=== PATIENT | male | born 1950 | race Caucasian/White ===

== ENCOUNTER 2019-06-13 08:09 | Emergency (ER) | payer BC, MEDICARE ==
--- OUTSIDE RECORDS SUMMARY | 2019-06-13 08:17 | XMS REPORT | Continuity of Care Document ---
:1950 External Reference #:[id number] Author Name Lawrence Ireland MD (transmitted by agent of provider June London) Address [address] [place] [address] Care Team Providers Name Role Phone Fredi Mitchell MD - Rheumatology Care Team Information [employer] Officer Lawrence Ireland MD - Family Medicine Care Team Information Bomb [employer] Officer Problems Active Problems Provider Date Essential hypertension Stephanie Stewart MD Onset: 09/12/2016 Psoriasis with arthropathy Stephanie Stewart MD Onset: 09/12/2016 Social History Type Date Description Comments Sex Unknown Tobacco Use Start: Unknown End: Former Cigarette Smoker quit 20 years ago Unknown ETOH Use Currently consumes alcohol socially Tobacco Use Start: Unknown End: Patient is a former smoker Unknown Smoking Status Reviewed: 05/20/19 Patient is a former smoker Allergies, Adverse Reactions, Alerts Active Allergies Reaction Severity Comments Date Sulfa Drugs rash 02/11/2011 Lisinopril has dull headaches Mild 11/24/2015 Medications Active Medications SIG Qnty Indications Ordering Date Provider Rosuvastatin Calcium Take One Tablet 30tabs Stephanie Stewart, 02/19/2018 10mg Tablets By Mouth AT Bedtime Clobetasol Propionate apply spray to 125ml Stephanie Stewart, 09/12/2016 0.05% rash on elbow MD Liquid and legs daily prn Hydrochlorothiazide take one tablet 90tabs Lawrence Ireland, 12/25/2015 25mg Tablets by mouth every MD day Amlodipine Besylate take 1 tablet 90tabs Lawrence Ireland, 07/27/2015 10mg Tablets by mouth at MD night Omron 7 Series Blood check blood Pat, Stephanie, 07/25/2015 Pressure Monitor pressure twice MD Device a day and keep a log Omeprazole take 1 capsule Meenacaps Lawrence Ireland, 20mg Capsules DR by mouth three MD times per week Edna Mitchell, 40mg/0.4ML PNKT Fredi Mitchell, 10&20&30mg TBPK Fredi NUÑEZ Immunizations CPT Code Status Date Vaccine Lot # [id number] Given 01/14/2019 Influenza High Dose [id number] Given 05/20/2018 Pneumovax Injection [id number] 42658 Given 02/19/2018 Influenza High Dose [id number] 39789 Given 12/16/2016 Influenza Virus Vaccine Quadrivalent Iiv4 Split [id number] Preser Free Id Q2038 Given 11/10/2015 Influenza Vaccine (Fluzone) Age 3 And Older [id number] Q2038 Given 12/30/2014 Influenza Vaccine (Fluzone) Age 3 And Older [id number] 89940 Given 12/30/2014 Zoster Vaccine Live Injection [id number] 12697 Given 12/30/2014 Pneumococcal Conjugate Vaccine 13 Valent For [id number] Intramuscular Use Vital Signs Date Vital Result Comment 05/20/2019 3:25pm BP Systolic 140 mmHg BP Diastolic 82 mmHg Body Temperature 98.4 F Heart Rate 80 /min Respiratory Rate 18 /min Height 71 inches 5'11" Weight 248.00 lb BMI (Body Mass Index) 34.6 kg/m2 BSA (Body Surface Area) 2.31 m2 [place] body weight in kilograms 78 kg O2 % BldC Oximetry 98 % 01/14/2019 2:34pm BP Systolic Sitting Left Arm 130 mmHg BP Diastolic Sitting Left Arm 70 mmHg Body Temperature 97.8 F Heart Rate 107 /min Respiratory Rate 24 /min Height 71 inches 5'11" Weight 248.00 lb BMI (Body Mass Index) 34.6 kg/m2 BSA (Body Surface Area) 2.31 m2 [place] body weight in kilograms 78 kg O2 % BldC Oximetry 97 % Results Test Acquired Date Facility Test Result H/L Range Note Comprehensive 01/08/2019 [facility] Glucose 76 mg/dL Normal 74-106 1 Metabolic Panel [address] [place] [address] [phone] BUN 10 mg/dL Normal 7-18 Creatinine 0.8 mg/dL Normal 0.6-1.3 Glom Filtration Rate, Estimate >60 mL/min >60 If >60 mL/min >60 2 BUN/Creat 12.5 ratio Sodium 137 mmol/L Normal 136-145 Potassium 3.5 mmol/L Normal 3.5-5.1 Chloride 104 mmol/L Normal 98-107 Carbon Dioxide 24 mmol/L Normal 21-32 Anion Gap 9 mEq/L Normal 8-16 Calcium 8.6 mg/dL Normal 8.5-10.1 Total Protein 8.4 g/dL High 6.4-8.2 Albumin 3.8 g/dL Normal 3.4-5.0 Globulin 4.6 g/dL High 1.9-4.3 Alb/Glob 0.8 ratio Bilirubin,Total 0.5 mg/dL Normal 0.2-1.0 Sgot/Ast 42 U/L High 15-37 SGPT/Alt 39 U/L Normal 12-78 Alkaline Phosphatase 62 U/L Normal 45-117 LDL Cholesterol Profile 01/08/2019 [facility] Cholesterol 180 mg/dL <[address] [place] [address] [phone] Triglycerides 62 mg/dL <150 4 HDL Cholesterol 48 mg/dL >40 5 LDL-Cholesterol 120 mg/dL < 100 6 CBC W/Automated 01/08/2019 [facility] White Blood 5.9 K/uL Normal 3.4-10.[address] Count [place], [place] [id number] [phone] Red Blood Count 4.41 M/uL Normal 4.20-5.80 Hemoglobin 15.6 gm/dL Normal 12.8-17.0 Hematocrit 42.6 % Normal 38.0-48.0 Mean Cell Volume 96.6 fl High 80.0-96.0 Mean Corpuscular HGB 35.4 pg High 27.0-33.0 Mean Corpuscular HGB Conc 36.6 g/dL High 31.7-36.0 Platelet Count 234 K/uL Normal 155-360 Red Cell Distri Width SD 43.4 fl Normal 36-51 Red Cell Distri Width %CV 12.1 % Normal 11.6-15.8 Mean Platelet Volume 9.4 fl Normal 6.6-10.6 Neut% 49.1 % Normal 33.0-73.0 Lymph % 27.8 % Normal 20.0-42.0 [place] % 15.0 % High 0.0-10.0 Eo% 6.9 % High 0.0-6.6 Bas% 1.0 % Normal 0.0-1.1 Immature Grans 0.2 % Normal 0.0-5.0 NRBC % 0.0 /100WBC < 10/ 100 WBC Neut# 2.91 K/uL Normal 1.8-7.0 Lymph # 1.65 K/uL Normal 1.0-4.0 [place] # 0.89 K/uL High 0.0-0.8 Eos # 0.41 K/uL Normal 0.0-0.5 Baso # 0.06 K/uL Normal 0.0-0.1 Immature Grans Absolute 0.01 K/uL NRBC # 0.00 K/uL 1 L40.50 2 Note: Persistent reduction for 3 months or more in an eGFR <60 mL/min/1.73 m2 defines CKD. Patients with eGFR values >/=60 mL/min/1.73 m2 may also have CKD if evidence of persistent proteinuria is present. The original MDRD equation for estimated GFR is not valid for patients less than 18 years of age. Additional information may be found at www.kdoqi.org. 3 Reference Guidelines*: Desirable: ........... < 200 mg/dL Borderline High: ..... 200-239 mg/dL High: ................ >= 240 mg/dL * The National Cholesterol Education Program (NCEP) 4 Reference Guidelines*: Normal: ............. < 150 mg/dL Borderline High: .... 150-199 mg/dL High: ............... 200-499 mg/dL Very High: .......... > 500 mg/dL * Source: National Cholesterol Education Program (NCEP) 5 Reference Guidelines*: Low HDL: ..... < 40 mg/dL Normal: ..... 40-60 mg/dL Desirable: ... > 60 mg/dL *The National Cholesterol Education Program(NCEP) 6 Reference Guidelines*: Optimal:........... <100 mg/dL Near Optimal....... 100-129 mg/dL Borderline High.... 130-159 mg/dL High............... 160-189 mg/dL Very High.......... >=190 mg/dL * Source: National Cholesterol Education Program (NCEP) Procedures Date Code Description Status 04/28/2011 60262517 Colonoscopy Completed Medical Devices Description No Information Available Encounters Type Date Location Provider Dx Diagnosis Office Visit 01/14/2019 [facility] Lawrence Ireland I10 Essential ( primary) 2:30p Office hypertension E78.5 Hyperlipidemia, unspecified L40.50 Arthropathic psoriasis, unspecified Z23 Encounter for immunization Assessments Date Code Description Provider 01/14/2019 I10 Essential (primary) hypertension Lawrence Ireland MD 01/14/2019 E78.5 Hyperlipidemia, unspecified Lawrence Ireland MD 01/14/2019 L40.50 Arthropathic psoriasis, unspecified Lawrence Ireland MD 01/14/2019 Z23 Encounter for immunization Lawrence Ireland MD Plan of Treatment Future Appointment(s):07/15/2019 8:00 am - Lawrence Ireland MD at [facility] [id number]/14/2019 - Lawrence Ireland MDI10 Essential (primary) hypertensionComments:BP well controlled. Continue current medicationsFollow up: 6 onspwhV64.5 Hyperlipidemia, unspecifiedComments:Labs reviewed.10 year ASCVDrisk of 19.3% - moderate to high intensity statin recommended. Currently on Risuvastatin 10 mg. Continue.L40.50 Arthropathic psoriasis, unspecifiedComments:Follows with rheumatology.Z23 Encounter for immunizationComments:Flu vaccine given Functional Status Functional Condition Comment Date Status Glasses Active Independent with all ADL's Active Mental Status Description No Information Available Referrals Description No Information Available
--- OUTSIDE RECORDS SUMMARY | 2019-06-13 08:17 | XMS REPORT | Continuity of Care Document ---
:1950 External Reference #:[id number] Author Name Lawrence Ireland MD (transmitted by agent of provider Dasha Obando) Address [address] [place] [address] Care Team Providers Name Role Phone Fredi Mitchell MD - Rheumatology Care Team Information Stitcher Around [phone] Lawrence Ireland MD - Family Medicine Care Team Information Stitcher Around Problems Active Problems Provider Date Essential hypertension [...] Medications SIG Qnty Indications Ordering Date Provider Doxycycline Hyclate 2 tab by mouth 2caps S50.852A Lawrence Ireland, 2019 100mg once MD Capsules Rosuvastatin Calcium Take One Tablet 30tabs Stephanie Stewart, 02/19/2018 10mg Tablets By Mouth AT MD Bedtime Clobetasol Propionate apply spray to 125ml Stephanie Stewart, 09/12/2016 0.05% rash on elbow MD Liquid and legs daily prn Hydrochlorothiazide take one tablet 90tabs Lawrence Ireland, 12/25/2015 25mg Tablets by mouth every MD day Amlodipine Besylate take 1 tablet 90tabs Lawrence Ireland, 07/27/2015 10mg Tablets by mouth at MD night Omron 7 Series Blood check blood Stephanie Stewart, 07/25/2015 Pressure Monitor pressure twice MD Device a day and keep a log Omeprazole take 1 capsule 38caps Lawrence Ireland, 20mg Capsules DR by mouth three MD times per week Humdelisa Mitchell, 40mg/0.4ML PNKT Fredi Mitchell, 10&20&30mg TBPK Fredi NUÑEZ Immunizations CPT Code Status Date Vaccine Lot # 60561 Given 01/14/2019 Influenza High Dose [id number] 81514 Given 05/20/2018 Pneumovax Injection [id number] 29294 Given 02/19/2018 Influenza High Dose [id number] 33911 Given 12/16/2016 Influenza Virus Vaccine Quadrivalent Iiv4 Split [id number] Preser Free Id Q2038 Given 11/10/2015 Influenza Vaccine (Fluzone) Age 3 And Older [id number] Q2038 Given 12/30/2014 Influenza Vaccine (Fluzone) Age 3 And Older [id number] 39651 Given 12/30/2014 Zoster Vaccine Live Injection [id number] 50337 Given 12/30/2014 Pneumococcal Conjugate Vaccine 13 Valent For [id number] Intramuscular Use Vital Signs Date Vital Result Comment 05/20/2019 3:25pm BP Systolic 140 mmHg BP Diastolic 82 mmHg Body Temperature 98.4 F Heart Rate 80 /min Respiratory Rate 18 /min Height 71 inches 5'11" Weight 248.00 lb BMI (Body Mass Index) 34.6 kg/m2 BSA (Body Surface Area) 2.31 m2 [place] body weight in kilograms 78 kg O2 % BldC Oximetry 98 % 01/14/2019 2:34pm BP Systolic Sitting Left Arm 130 mmHg BP Diastolic Sitting Left Arm 70 mmHg Body Temperature 97.8 F Heart Rate 107 /min Respiratory Rate 24 /min Height 71 inches 5'11" Weight 248.00 lb BMI (Body Mass Index) 34.6 kg/m2 BSA (Body Surface Area) 2.31 m2 [place] body weight in kilograms 78 kg O2 % BldC Oximetry 97 % Results Test Acquired Date Facility Test Result H/L Range Note Comprehensive 01/08/2019 [facility] Glucose 76 mg/dL Normal 74-106 1 Metabolic Panel [address] [place] [address] [phone] BUN 10 mg/dL Normal 7-18 Creatinine 0.8 [...] U/L Normal 45-117 LDL Cholesterol Profile 01/08/2019 [facility] Cholesterol 180 mg/dL <200 3 [address] [place] [address] [phone] Triglycerides 62 mg/dL <150 4 HDL Cholesterol 48 mg/dL >40 5 LDL-Cholesterol 120 mg/dL < 100 6 CBC W/Automated 01/08/2019 [facility] White Blood 5.9 K/uL Normal 3.4-10.5 Diff [address] [place] [address] [phone] Red Blood Count 4.41 M/uL Normal 4.20-5.80 [...] 33.0-73.0 Lymph % 27.8 % Normal 20.0-42.0 [place] % 15.0 % High 0.0-10.0 Eo% 6.9 % High 0.0-6.6 Bas% 1.0 % Normal 0.0-1.1 Immature Grans 0.2 % Normal 0.0-5.0 NRBC % 0.0 /100WBC < 10/ 100 WBC Neut# 2.91 K/uL Normal 1.8-7.0 Lymph # 1.65 K/uL Normal 1.0-4.0 [place] # 0.89 K/uL High 0.0-0.8 Eos # [...] (NCEP) Procedures Date Code Description Status 04/28/2011 [id number] Colonoscopy Completed Medical Devices Description No Information Available Encounters Type Date Location Provider Dx Diagnosis Office Visit 05/20/2019 [facility] Lawrence Ireland, S50.852A Superficial foreign 3:30p Office MD body of left forearm, initial encounter Office Visit 01/14/2019 [facility] Lawrence Ireland, I10 Essential ( primary) 2:30p Office hypertension E78.5 Hyperlipidemia, unspecified L40.50 Arthropathic psoriasis, unspecified Z23 Encounter for immunization Assessments Date Code Description Provider 05/20/2019 S50.852A Superficial foreign body of left forearm, Lawrence Ireland MD initial encounter 01/14/2019 I10 Essential (primary) hypertension Lawrence Ireland MD 01/14/2019 E78.5 Hyperlipidemia, unspecified Lawrence Ireland MD 01/14/2019 L40.50 Arthropathic psoriasis, unspecified Lawrence Ireland MD 01/14/2019 Z23 Encounter for immunization Lawrence Ireland MD Plan of Treatment Future Appointment(s):07/15/2019 8:00 am - Lawrence Ireland MD at [facility] [id number]/20/2019 - Lawrence Ireland MDS50.852A Superficial foreign body of left forearm, initial encounterNew Medication:Doxycycline Hyclate 100 mg - 2 tab by mouth onceComments:Small black spot which appears to be a foreign body in the area where patient removed tick. I was able to remove this foreign body using pickups in clinic. The area was cleaned with an alcohol swab and then washed. Band-Aid was applied. Patient tolerated this well.Prophylactic dose of doxycycline as prescribed. Signs and symptoms prompting return to clinic for further evaluation are discussed. Functional Status Functional Condition Comment Date Status Glasses Active Independent with all ADL's Active Mental Status Description No Information Available Referrals Description No Information Available
--- OUTSIDE RECORDS SUMMARY | 2019-06-13 08:17 | XMS REPORT | Continuity of Care Document ---
:1950 Author Organization [facility] Address [address], [place] [id number] Phone Support Name Relationship Address Phone Pat NUÑEZ, Stephanie Unavailable Unavailable Unavailable Allergies, Adverse Reactions, Alerts Substance Reaction Status Sulfa (Sulfonamide Antibiotics) Active Medications Medication Instructions Dosage Effective Dates Status Comments (start - stop) Humira Pen 40 mg/0.8 mL inject 0.8 40 MG - Active subcutaneous milliliter by subcutaneous route every 2 weeks prednisone 5 mg tablet take 1 tablet by - Active oral route everyday as directed Clobex 0.05 % topical apply by topical 0.00 - Active spray route 2 times every day to the affected area(s) ; rub in gently and completely amlodipine 10 mg tablet take 1 tablet by 10 MG - Active oral route every day hydrochlorothiazide 25 mg take 1 tablet by 25 MG - Active tablet oral route every day Tylenol Extra Strength 500 take 2 tablet 1000 MG - Active mg tablet (1000MG) by oral route every day as needed Prilosec 20 mg take 1 capsule by 20 MG - Active capsule,delayed release oral route 2 times every day before a meal Problems Condition Effective Dates Clinical Status Comments (start - stop) Arthropathic psoriasis, unspecified Other assistant terminal manager (current) drug therapy Arthropathic psoriasis, unspecified Other assistant terminal manager (current) drug therapy Arthropathic psoriasis, unspecified Other assistant terminal manager (current) drug therapy Pain in right foot Arthropathic psoriasis, unspecified Other assistant terminal manager (current) drug therapy Arthropathic psoriasis, unspecified Other prison (current) drug therapy Arthropathic psoriasis, unspecified Other prison (current) drug therapy Arthropathic psoriasis, unspecified Other prison (current) drug therapy Psoriasis - Active Mapped from [facility] Chronic Conditions table on 05/10/2014 by the ICD9 to SNOMED Bulk Mapping Utility. The mapped diagnosis code was psoriasis, 696.1, added by Kathya Kahn, with responsible provider Kathya EVANS. Onset date 09/12/2011; last addressed on 05/31/2013. High risk drug monitoring - Active Mapped from [facility] Chronic status Conditions table on 07/11/2014 by the ICD9 to SNOMED Bulk Mapping Utility. The mapped diagnosis code was retirement use of medication, V58.69, added by Kathya Kahn, with responsible provider Kathya EVANS. Onset date 09/12/2011; last addressed on 11/24/2013. Psoriasis with - Active Mapped from [facility] Chronic arthropathy Conditions table on 05/10/2014 by the ICD9 to SNOMED Bulk Mapping Utility. The mapped diagnosis code was Psoriatic arthropathy, 696.0, added by Monica Osborn, with responsible provider Donya Berger. Onset date 12/13/2010; last addressed on 11/24/2013. Procedures Procedure Date No information Results Test Name Date and Time Measure Units Reference Range Abnormal Flag Status Comments No information Advance Directives Directive Yes / No Effective Date File Name No information Encounters Encounter Practice Location Reason(s) Diagnoses Date Provider Providers Description For Visit Copied on Encounter Arthritis Mar-0 [facility] 9-202 Associates 0 [facility], [address] [place] [address], [place], [id number], tel:[phone] Arthritis Arthritis Arthropathic Apr- [place] Specialist: [facility] psoriasis, 7- DOUG Rasheed. [facility] unspecifiedOth 7 [address] [facility], [facility], [address] er prison [facility] [address] [facility] (current) drug [place], [facility], [place], [place], [place], [place], [id number], [place], [id number], . [place], [address]. [place] tel:[phone] tel:[phone] tel:[phone] [facility] Provider: Jaylon Kaye, [address] [place] [address], [place], [address]. tel:[phone] Arthritis Arthritis Arthropathic [place] Specialist: Health [facility] psoriasis, DOUG Rasheed. [facility] unspecifiedOth 7 [address] [place], [facility], [address] er prison [place] [address] [place] [address] (current) drug [place], [facility], therapy [place], [place], [place], [place], [id number], [place], [id number], [place], [address]. [place] tel:[phone] tel:[phone] tel:[phone] ring Provider: Jaylon Kaye, [address] [place] [address], [address]. tel:[phone] Arthritis Arthritis Dec-0 [place] [facility] Health DOUG Rasheed. [facility] 6 [address] [facility], [address] [facility] [facility], [place], [place], [place], [id number], [id number], [place]. [place] tel:[phone] tel:[phone] Arthritis Arthritis Arthropathic [place] Specialist: [facility] psoriasis, DOUG Rasheed. [facility] unspecifiedOth 6 [address], [address] er prison [facility] [address] [place] [address] (current) drug [place], [facility], therapyPain in [place], [place], right foot [place], [place], [id number], [place], [id number], [place], [address]. [place] tel:[phone] tel:[phone] tel:[phone] ring Provider: Jaylon Kaye, [address] [place] [address], [address]. tel:[phone] Arthritis Arthritis Arthropathic Oct- [place] Specialist: Health [facility] psoriasis, DOUG [facility] unspecifiedOth 6 [address], [facility], [address] er prison [place] [address] [place] [address] (current) [facility], therapy [place], [place], [place], [place], [id number], [place], [id number], [place], [address]. [place] tel:[phone] tel:[phone] tel:[phone] [id number] ring Provider: Jaylon Kaye, [address] [place] [address], [address]. tel:[phone] Arthritis Arthritis Arthropathic George-2 [place] Specialist: Health Health psoriasis, 2 DOUG Rasheed. [facility] Chrissy unspecifiedOth 6 [address], [facility], [address] (current) [facility], [facility], therapy [place], [place], [place], [place], [id number], [place], [id number], [place], [address]. [place] tel:[phone] tel:[phone] tel:[phone] [phone] ring Provider: Jaylon Kaye, [address] [place] [address], [address]. tel:[phone] Arthritis Arthritis Arthropathic Mar-1 [place] Specialist: [facility] Health psoriasis, DOUG Rasheed. [facility] Chrissy unspecifiedOth 6 [address], [facility], [address] er [address] (current) [facility], [facility], therapy [place], [place], [place], [place], [id number], [place], [id number], [place], [address]. [place] tel:[phone] tel:[phone] tel:[phone] [phone] ring Provider: Jaylon Kaye, [address] [place] [address], [address]. tel:[phone] Arthritis Arthritis Arthropathic Dec-1 [place] Specialist: Health Health psoriasis, 6 DOUG Rasheed. [facility] unspecifiedOth 5 [address], [facility], [address] er prison [facility] [address] [facility] (current) [facility], [place], [place], [place], [id number], [place], [id number], [place], [address]. [place] tel:[phone] tel:[phone] tel:[phone] [id number] [facility] Provider: Jaylon Kaye, [address] [place] [address], [place], [address]. tel:[phone] Arthritis Arthritis Dec-2 [place] Referring Health Health 9-201 DOUG Rasheed. Provider: Chrissy Lowe 4 [address] [place], [facility], [address] [place] [address], [place], [place], [place], [place], [id number], [place], [address]. [id number], [place]. tel:[phone] [place] tel:[phone] tel:[phone] Arthritis Arthritis Sep-2 [place] Referring Health Health 4-201 DOUG Rasheed. Provider: Chrissy Lowe 4 [address] [place], [address] PLL[address] [facility], [address] [place] [address], [place], [place], [place], [place], [id number], [place], [address]. [id number], [place]. tel:[phone] tel:[phone] tel:[phone] Arthritis Arthritis Oct-1 [place] Referring Health Health 8-201 DOUG Rasheed. Provider: [facility] 2 [address] [place]ADDOX, [address] [facility], [address] [place] [address], [facility], [place], [place], [place], [place], [id number], [place], [address]. [id number], [place]. tel:[phone] [place] tel:[phone] tel:[phone] Arthritis Arthritis Apr-0 [place] Referring Health Health 7 DOUG Rasheed. Provider: [facility] 1 [address] [facility], [facility] [facility], [address] [facility], [facility], [place], [place], [place], [place], [id number], [place], [address]. [id number], [place]. tel:[phone] tel:[phone] tel:[phone] Family History Family Member Diagnosis Age At Onset Grandmother Father Gun Shot Wound 30 Immunizations Vaccine Date Status Comments Influenza, injectable, administered Source: Other Provider trivalent, split virus, 4 years and older, Fluvirin [id number] Pneumococcal polysaccharide administered Source: Other Provider [id number] Influenza, split virus, administered Source: Other Provider injectable, 3 years and older Fluvirin [id number] Flu (split) (3 yrs or older) administered Source: New Immunization Record Not going to receive administered Source: New Immunization Record Never had administered Source: New Immunization Record Payers Payer name Insurance type Covered green party ID Authorization(s) BCBS No Referral Required [id number] Social History Type Description Quantity Date Captured Comments Sex Male Vital Signs Date / Height Weight BMI Pulse Blood Temperature Respiratory Body Head BMI Pulse Inhaled Time: Rate Pressure Rate Surface Circumference percentile Ox Ox Area No information Chief Complaint And Reason For Visit No information Reason For Referral Reason For Referral No information Plan Of Treatment Date Type Action Status No information History Of Present Illness Encounter Date Complaint History Of Present Illness No information Functional Status Date Functional Assessment No information Medications Administered Medication Instructions Dosage Effective Dates (start - stop) Status Comments No information Instructions Date Instruction Additional Information Discussed importance of holding DMARDs/ biologics if patient develops an infection and to notify the treating physician Discussed importance of holding DMARDs/ biologics if patient develops an infection and to notify the treating physician
[2019-06-13 08:28] VITALS: BP 145/79
--- NOTE | 2019-06-13 08:42 | UC ---
Bite Injury/Animal HPI - HPI Summary HPI Summary: 69-year-old male comes in with a chief complaint of a tick bite. Yesterday patient found an engorged tick in his bed. He has an area on his back that has a rash and appears to be where the tick was attached. Last time he was out clearing brush was about a week ago. He does have a cat in the house. He feels well. No fevers or chills no body aches or arthralgias. No headache or other symptoms of Lyme disease. - History of Current Complaint Chief Complaint: UCSkin Stated Complaint: TICK BITE BACK Time Seen by Provider: 06/13/19 08:17 Pain Intensity: 0 - Allergies/Home Medications Allergies/Adverse Reactions: Allergies Allergy/AdvReac Type Severity Reaction Status Date / Time Sulfa (Sulfonamide Allergy Rash Verified 06/13/19 08:19 Antibiotics) Home Medications: Home Medications Omeprazole CAP (NF) [Prilosec CAP* 20 MG] 20 mg PO DAILY 04/06/13 [History Confirmed 06/13/19] amLODIPine TAB* [Norvasc TAB*] 10 mg PO DAILY 07/30/15 [History Confirmed ] Hydrochlorothiazide TAB* [Hydrodiuril TAB*] 25 mg PO DAILY 08/12/15 [History Confirmed 06/13/19] Adalimumab [Humira Pen] 40 mg SQ SEE INSTRUCTIONS 06/13/19 [History Confirmed ] DOXYcycline CAP(*) [DOXYcycline 100MG CAP(*)] 100 mg PO BID #28 cap 06/13/19 [Rx ] PMH/Surg Hx/FS Hx/Imm Hx Previously Healthy: Yes Cardiovascular History: Hypertension GI/ History: Gastroesophageal Reflux - Surgical History Surgical History: Yes Surgery Procedure, Year, and Place: TONSILECTOMY - Family History Known Family History: Positive: Other - arthritis Negative: Cardiac Disease, Hypertension - Social History Alcohol Use: Rare Alcohol Amount: 6 beers/day Substance Use Type: None Smoking Status (MU): Former Smoker Type: Cigarettes Length of Time of Smoking/Using Tobacco: 20 yrs Have You Smoked in the Last Year: No When Did the Patient Quit Smoking/Using Tobacco: 1987 - Immunization History Most Recent Influenza Vaccination: 11/14 Review of Systems All Other Systems Reviewed And Are Negative: Yes Constitutional: Positive: Negative Skin: Positive: Other - see hpi Eyes: Positive: Negative ENT: Positive: Negative Respiratory: Positive: Negative Motor: Positive: Negative Neurovascular: Positive: Negative Musculoskeletal: Positive: Negative Neurological/Mental Status: Positive: Negative Psychological: Positive: Negative Is Patient Immunocompromised?: No Physical Exam Triage Information Reviewed: Yes Appearance: Well-Appearing, No Pain Distress, Well-Nourished Vital Signs: Initial Vital Signs Temp 97.8 F 06/13/19 08:21 Pulse 74 06/13/19 08:21 Resp 16 06/13/19 08:21 BP 145/79 06/13/19 08:21 Pulse Ox 97 06/13/19 08:21 Vital Signs Reviewed: Yes Eye Exam: Normal Neck: Positive: Supple Respiratory: Positive: No respiratory distress Musculoskeletal: Positive: Strength Intact, ROM Intact Neurological: Positive: Alert Psychological: Positive: Age Appropriate Behavior Skin: Positive: Other - On the left thoracic back, there is a 1.5 cm area of dull erythema. No skin foreign body appreciated. The rash is not in the shape of a bull's-eye. Bite Injury Course/Dx - Course Course Of Treatment: The rash on the back appears to be an area that's potentially an area of irritation from a tick bite. It is not in the shape of a bull's-eye rash. We discussed signs and symptoms of Lyme disease. At this time without the bull's- eye rash or an area of cellulitis or other symptoms of Lyme disease it does not appear that the patient needs to be curative dose of doxycycline. Discussed all this with the patient and the plan is to start doxycycline 100 mg twice a day for 14 days if he develops any symptoms of Lyme disease; bull's-eye rash, spread of the present rash, fever bodyaches joint aches headaches. Otherwise the patient will follow-up his primary care doctor as needed or get reevaluated here if needed. - Differential Dx/Diagnosis Provider Diagnosis: Tick bite of back Discharge ED - Sign-Out/Discharge Documenting (check all that apply): Patient Departure All imaging exams completed and their final reports reviewed: No Studies - Discharge Plan Condition: Stable Disposition: HOME Prescriptions: DOXYcycline CAP(*) [DOXYcycline 100MG CAP(*)] 100 mg PO BID #28 cap Patient Education Materials: Lyme Disease (ED), Tick Bite (ED) Referrals: Stephanie Stewart MD [Primary Care Provider] - Additional Instructions: FOLLOW UP WITH YOUR DOCTOR IF NOT COMPLETELY IMPROVED. Start the doxycycline 100 mg twice a day if he developed any symptoms of Lyme disease such as body aches and joint aches fevers headache or if the rash develops into a bull's-eye rash or starts to spread. GET REEVALUATED IF NOT IMPROVING OR WORSE OR ANY QUESTIONS OR CONCERNS. - Billing Disposition and Condition Condition: STABLE Disposition: Home
== END 2019-06-13 08:50 | disposition home or self-care (01) ==
LOC: UCCORT 08:09
DX: S20.462A Insect bite (nonvenomous) of left back wall of thorax, initial encounter (principal); W57.XXXA Bitten or stung by nonvenomous insect and other nonvenomous arthropods, initial encounter; Y92.9 Unspecified place or not applicable; I10 Essential (primary) hypertension; K21.9 Gastro-esophageal reflux disease without esophagitis; Z79.899 Other long term (current) drug therapy; Z88.2 Allergy status to sulfonamides; Z87.891 Personal history of nicotine dependence
CPT/HCPCS: 99202; G0463

== ENCOUNTER 2023-08-04 20:31 | Inpatient (IN) ==
[2023-08-04] MEDS: NS 0.9% 1000 ml BAG 1,000 ML IV ONE ×2 (20:45→21:49)
[2023-08-04 20:52] LABS: Hematocrit 39.5 % (38-53); Mean Corpuscular Hemoglobin 34.3 pg (27-33); Mean Corpuscular Hgb Conc 35.3 g/dL (31-36); Mean Platelet Volume 7.7 fL (7.5-11.2); Platelet Count 196 10^3/uL (150-450); Red Blood Count 4.07 10^6/uL (4.06-5.63); Red Cell Distribution Width 13.1 % (12-17); White Blood Count 7.5 10^3/uL (3.6-10.2)
[2023-08-04 21:00] LABS: INR 1.38 (0.83-1.13)
[2023-08-04 21:15] LABS: High Sens Troponin Baseline 16 pg/mL (<20)
[2023-08-04 21:30] LABS: ALT 27 U/L (7-52); AST 39 U/L (13-39); Albumin 3.9 g/dL (3.2-5.2); Albumin/Globulin Ratio 1.2 (1-3); Alkaline Phosphatase 50 U/L (35-149); Anion Gap 12 mmol/L (2-16); Blood Urea Nitrogen 13 mg/dL (6-24); CO2 Carbon Dioxide 28 mmol/L (22-32); Calcium 8.7 mg/dL (8.6-10.3); Chloride 89 mmol/L (101-111); Creatinine, Serum 0.97 mg/dL (0.67-1.17); Globulin 3.2 g/dL (2-4); Glucose 102 mg/dL (70-100); Potassium 3.4 mmol/L (3.5-5.0); Sodium 129 mmol/L (135-145); Total Bilirubin 0.5 mg/dL (0.2-1.0); Total Protein 7.1 g/dL (6.4-8.9); eGFR CKD-EPI 81.9 (>60)
[2023-08-04 21:43] LABS: ABS Basophils 0.1 10^3/uL (0.0-0.1); ABS Eosinophils 0.2 10^3/uL (0.0-0.5); ABS Lymphocytes 1.9 10^3/uL (1.0-4.8); ABS Monocytes 1.6 10^3/uL (0.0-1.1); ABS Neutrophils 3.7 10^3/uL (1.5-7.6); ABS Nucleated RBC 0.01 10^3/ul; Eosinophil % 3.2 %; Lymphocyte % 25.3 %; Nucleated Red Blood Cells % 0.1 %/100WBC (0.0-0.8)
[2023-08-04 21:48] LABS: RBC Morphology Normal (Normal)
[2023-08-04 22:06] LABS: High Sensitivity Troponin 1 Hr 16 pg/mL (<20)
[2023-08-04 22:33] LABS: Alcohol, S < 13 mg/dL (<13)
[2023-08-04] MEDS: Iohexol 350 (CONTRAST) 500 ML MDV IV ONE (23:42)
[2023-08-04] MEDS: Amiodarone 150 mg IVPREMIX 150 MG/100 ML BAG IV ONE (23:48)
[2023-08-05] MEDS: Norepinephrine 4 MG/250mL D5W 4,000 MCG/250 ML BAG IV SCH (00:53)
[2023-08-05 05:14] LABS: High Sensitivity Troponin 3 Hr 14 pg/mL (<20)
[2023-08-05] MEDS: Potassium Chlor 20 meq TAB.ER PO ONE (05:57)
[2023-08-05] MEDS: PHENYLEPHRINE DRIP IVPREMIX 50 MG/250 ML BAG IV SCH (05:58)
[2023-08-05] MEDS: Multivitamins/Minerals TAB PO SCH (08:19)
[2023-08-05 09:00] LABS: Hematocrit 39.7 % (38-53); Hemoglobin 13.8 g/dL (13.2-16.3); Mean Corpuscular Hemoglobin 34.1 pg (27-33); Mean Corpuscular Hgb Conc 34.8 g/dL (31-36); Mean Corpuscular Volume 97.9 fL (80-97); Red Blood Count 4.05 10^6/uL (4.06-5.63); Red Cell Distribution Width 13.4 % (12-17); White Blood Count 8.3 10^3/uL (3.6-10.2)
[2023-08-05 09:06] LABS: ABS Basophils 0.1 10^3/uL (0.0-0.1); ABS Eosinophils 0.3 10^3/uL (0.0-0.5); ABS Lymphocytes 2.3 10^3/uL (1.0-4.8); ABS Monocytes 1.5 10^3/uL (0.0-1.1); ABS Neutrophils 4.1 10^3/uL (1.5-7.6); ABS Nucleated RBC 0.02 10^3/ul; Eosinophil % 3.4 %; Lymphocyte % 28.3 %; Nucleated Red Blood Cells % 0.2 %/100WBC (0.0-0.8); Platelet Count Platelets clumped. 10^3/uL (150-450)
[2023-08-05 10:07] LABS: Urine Appearance Clear; Urine Bilirubin Negative (Negative); Urine Blood Trace (Negative); Urine Color Light-Yellow; Urine Glucose Negative (Negative); Urine Ketones Negative (Negative); Urine Nitrite Negative (Negative); Urine Protein Negative (Negative); Urine Specific Gravity 1.029 (1.002-1.030); Urine Urobilinogen Negative (Negative)
[2023-08-05] MEDS ORDERED: Naloxone 0.4 mg VIAL 0.4 mg/ml 1 ml VIAL ONE (10:40)
[2023-08-05] MEDS ORDERED: Midazolam 5 mg/5 ml VIAL 1 mg/ml 5 ml VIAL (5 mg) ONE (10:40)
[2023-08-05] MEDS ORDERED: fentaNYL 100 mcg/2 ml 50 MCG/ML VIAL ONE (10:40)
[2023-08-05] MEDS ORDERED: Flumazenil 0.5 mg/5 ml 0.1 MG/ML 5 ml VIAL ONE (10:40)
[2023-08-05] MEDS: Midazolam 10 mg/10 ml VIAL 1 mg/ml 10 ml VIAL (10 mg) IV SLOW PU ONE (11:10)
[2023-08-05] MEDS: fentaNYL 100 mcg/2 ml 50 MCG/ML VIAL IV SLOW PU ONE (11:10)
[2023-08-05 14:46] VITALS: BP 121/72
== END 2023-08-05 14:30 | disposition home or self-care (01) | DRG 310 ==
LOC: ED 20:31 → EDHOLD 08-05 03:49 → ICU 08-05 06:56
PROVIDERS: ADMIT Internal Medicine; ATTEND Student in an Organized Health Care Education/Training Program
PROC: CARDVER (ICD-10-PCS; 2023-08-05 11:15)